=== PATIENT | male | born 1965 | race Caucasian/White ===

== ENCOUNTER 2025-02-06 08:46 | Outpatient (CLI) | payer OTHER, SELFPAY ==
--- NOTE | 2025-02-06 09:00 | CA_ITS ---
APPROVED REPORT EXAM: Comprehensive 2D, Doppler, and color-flow Echocardiogram Fluoroscope Operator: Kalina Seymour RVT Ht: 5 ft 11 in Wt: 235lbs BSA: 2.26 BP: 132/69 mmHg Indications: CHEST PAIN,SHORTNESS OF BREATH,CABG 2D Dimensions IVSd 1.71 cm M: 0.6-1.2 LVEF (Visual) 50.80 % PWd 0.94 cm M: 0.6 - 1.2 LA Volume 48.00 mL LVDd 3.96 cm M: 4.2 - 5.9 LA Volume Index 21.24 mL/m2 (M/F) 16-34 LVDs 2.95 cm M: 2.5 - 4.0 M-Mode Dimensions LA Diam 3.81 cm (1.9-4.0) TAPSE 1.60 (<1.7) LV Diastology E Decel Time 207 (160-240 msec) E/A Ratio 0.9 Aortic Valve KEILA Index 1.74 cm2/m2 AoV Peak Kei. 142.0 (50-130 cm/s) AO Peak GR. 8.10 mmHg AO Mean GR. 4.40 (<5 mmHg) AO VTI 25.0 (18-25 cm) KEILA (VTI) 4.01 (2.5-4.5 cm2) Mitral Valve MV E Max Kei. 84.0 (40-130 cm/s) MV A Velocity 97.0 (40-130 cm/s) E/A Ratio 0.87 MV PHT 61.0 ms Pulmonary Valve PV Peak Velocity 62.0 (50-150 cm/s) Left Ventricle The left ventricle is normal size. Left ventricular systolic function is normal. The left ventricular ejection fraction is within the normal range. There is increased left ventricular wall thickness. There is normal LV segmental wall motion. The left ventricular diastolic function is normal. LVEF is 60%. Right Ventricle The right ventricle is normal size. The right ventricular systolic function is normal. Atria The left atrium is mildly dilated. The right atrium is mildly dilated. There is no color Doppler evidence of interatrial shunt. Aortic Valve The aortic valve is mildly thickened. There is no hemodynamically significant aortic valvular stenosis. Trace aortic regurgitation is present. Mitral Valve The mitral valve is normal in structure. No evidence of mitral valve stenosis. Trace mitral regurgitation is present. Tricuspid Valve The tricuspid valve leaflets are thin and pliable. Trace tricuspid regurgitation. There is insufficient TR jet to estimate RVSP. Pulmonic Valve The pulmonary valve is grossly normal in structure. Trace pulmonic valve regurgitation is present. Great Vessels The aortic root is normal in size. IVC is normal in size and collapses >50% with inspiration. Pericardium There is no pericardial effusion. Other Information Study Quality: Fair Conclusion Normal biventricular systolic function. Mild biatrial dilation. No significant valvular stenosis or regurgitation. Electronically signed by : Unique Roger MD 02/09/2025 12:45:57
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
--- OUTSIDE RECORDS SUMMARY | 2025-02-06 09:08 | XMS_ITS | Clinical Summary ---
Author Organization Healthcare Address [address] [place] [address] Care Team Providers Care Prenatal Teacher Name Role Phone Unavailable Primary Care Provider Unavailabl e Social History Tobacco Use Types Packs/Day Years Used Date Smoking Tobacco: Never Assessed Sex and Gender Information Value Date Recorded Sex Assigned at Not on file Legal Sex Male 8:38 PM EST Gender Identity Not on file Sexual Orientation Not on file Plan of Treatment Health Maintenance Due Date Last Done Comments [facility]-Depression Screening 1966 [facility]-Infant/Child/Adol SDOH Screenings 1966 [facility]- SDOH Screenings 1984 [facility]-Adult SDOH Screenings 1984 [facility]-DTaP,Tdap,and Td Vaccine s (1 - Tdap) 1985 [facility]-Hepatitis B Vaccines (1 of 3 - 19+ 3-dose series) 1985 CT Colonography 08/23/2011 Colonoscopy 08/23/2011 FIT-DNA 08/23/2011 FIT 08/23/2011 FOBT 08/23/2011 Sigmoidoscopy 08/23/2011 [facility]-Colorectal Cancer Screening 08/23/2011 [facility]-Pneumococcal Vaccine: 50 + Years (1 of 1 - PCV) 2016 [facility]-Zoster Vaccines (1 of 2) 2016 [id number] Vaccine (1 - 20 24-25 season) 2025 [facility]-Influenza Vaccine (#1) 2025 HPV Vaccines Aged Out No longer eligi ble based on patient's age to complete this topic [facility]-HIB Vaccines Aged Out No longer e ligible based on patient's age to complete this topic [facility]-Hepatitis A Vaccines Aged Out No longer eligible based on patient's age to complete this topic UKY-IPV Vaccines Aged Out No longer e ligible based on patient's age to complete this topic [facility]-Rotavirus Vaccines Aged Out No lo nger eligible based on patient's age to complete this topic
[2025-02-06 10:30] LABS: Hematocrit 37.5 % (42.0-52.0); Hemoglobin 12.6 g/dL (14.1-18.0); Immature Granulocytes % 1.4 %; Mean Corpuscular HGB Conc 33.6 g/dL (31.8-35.4); Mean Corpuscular Hemoglobin 34.5 pg (27.0-31.2); Mean Corpuscular Volume 102.7 fl (80-94); Nucleated Red Blood Cells % 0 %; Platelet Count 163 K/mm3 (142-424); Red Blood Count 3.65 M/mm3 (4.60-6.20); Red Cell Distribution Width-SD 50.3 fL; White Blood Count 9.4 K/mm3 (4.8-10.8)
[2025-02-06 10:47] LABS: Alanine Aminotransferase 17 U/L (12-78); Albumin Level 3.2 g/dl (3.5-5.0); Alkaline Phosphatase 71 U/L (38-126); Anion Gap 9.0 mEq/L (5-15); Aspartate Amino Transferase 20 U/L (17-59); Bilirubin,Direct 0.1 mg/dl (0.0-0.4); Bilirubin,Indirect 0.3 mg/dL (0.0-0.9); Bilirubin,Total 0.4 mg/dl (0.2-1.3); Bilirubin,Unconjugated 0.3 mg/dL (0.0-1.1); Blood Urea Nitrogen 7 mg/dl (9-20); Calcium 9.2 mg/dl (8.4-10.2); Carbon Dioxide 27 mmol/L (22.0-30.0); Chloride 101 mmol/L (98-107); Cholesterol 170 mg/dl (140-200); Creatinine,Serum 0.80 mg/dl (0.66-1.25); Estimated Glomerular Filt Rate 99 ml/min (>60); GFR (African American) 120 ML/MIN (>60); Glucose 96 mg/dl (74-100); HDL Cholesterol 48 mg/dl (40-60); Magnesium 1.6 mg/dl (1.6-2.3); Potassium 4.0 mmoL/L (3.5-5.1); Sodium 133 mmol/L (136-145); Total Protein,Serum 5.5 g/dl (6.3-8.2); Triglycerides 218 mg/dl (30-150)
[2025-02-06 11:03] LABS: Free T4 (Free Thyroxine) 1.15 ng/dl (0.78-2.19)
[2025-02-06 11:16] LABS: Thyroid Stimulating Hormone 1.31 uIU/mL (0.465-4.68)
== END 2025-02-06 23:59 | disposition home or self-care (01) ==
PROVIDERS: PCP Internal Medicine; Visit Provider Nurse Practitioner
DX: I11.9 Hypertensive heart disease without heart failure (principal); I25.10 Atherosclerotic heart disease of native coronary artery without angina pectoris; E78.5 Hyperlipidemia, unspecified; Z95.1 Presence of aortocoronary bypass graft
CPT/HCPCS: 36415; 80048; 80061; 80076; 83735; 84439; 84443; 85025; 93306

== ENCOUNTER 2025-02-16 11:21 | Outpatient (CLI) | payer OTHER, SELFPAY ==
--- OUTSIDE RECORDS SUMMARY | 2025-02-16 11:24 | XMS_ITS | Clinical Summary ---
Author Organization [facility] [place] Address [address] [place] [id number] Phone Care Team Providers Care Pickle Solution Maker Name Role Phone Felicity Muro MD Primary Care Provider [phone] Ronal Zapata MD Unavailable [phone] Allergies Active Allergy Reactions Criticality Noted Date [...] (02/09/2019): Added automatically from request for surgery [id number] Carbuncle of left axilla 12/09/2018 CONNOR (generalized [...] disease) 11/13/2013 Coronary artery disease invo lving [place] coronary artery of [place] heart Coronary artery disease invo lving [place] coronary artery of [place] heart with angina pectoris Syncope and collapse [...] Surgeon: Ankit Hartman MD; Location: [facility]; Service: Cardiac Medical devices from this [...] on file Sexual Orientation Not on file Last Filed Vital Signs Vital Sign Reading [...] this topic Medical Devices Implanted Type Area Wool Fleece Grader Device Identifier Shelf Expiration Date Model / Serial / Lot Stent System - 3.0 X 22mm Resolute Alfredo Rx Coronary - [id number] Implanted:Qty: 1 on 02/10/2019 by Ankit Hartman MD at [facility] N/A: [employer] [id number] / / [id number] Procedures Procedure Name Priority Date/Time Associated Diagnosis [...] possible following completion of this dictation, during [facility]'s regular business hours. Note: Radiology results need to be interpreted within a comprehensiveclinical context. If you have questions about the radiology report, please contactthe office of the ordering clinician. [facility] ORDERABLES Final Result * FECAL HEME SCREEN (04/08/2015 8:45 PM EST) Final Positive immunochemical fecal occult blood test Internal QC ok This test is not recommended to detect upper GI bleeding. [facility] Stool specimen (specimen) 04/08/2015 8:45 PM EST 04/09/2015 6:25 AM EST us Lefty Baig DO IMMUNOLOGY ORDERABLES Final Resu lt [facility] [address] [place] [address] from Last 3 Months or Most Recently Relevant to Health Maintenance Insurance [id number] [facility] [place] [facility] [place] Advance Directives For more information, please contact: [phone] Documents on File Type Date Recorded Patient Leather Grader Expl anation Advance Directives/DNR 05/25/2017 12:41 PM [...] 10:56 PM 07/09/2017 8:50 PM Care Teams Pickle Solution Maker Relationship Specialty Start Date End Date Felicity Muro MD [address] [place] [id number] PCP - General Family Medicine 11/12/13 Ronal Zapata MD [address] [place] [address] [place] [address] Internal Medicine-Cardiovascular Disease 06/25/23
--- OUTSIDE RECORDS SUMMARY | 2025-02-16 11:24 | XMS_ITS | Clinical Summary ---
Author Organization Healthcare Address [address] [place] [address] Care Team Providers Care Division Field Inspector Name Role Phone Unavailable Primary Care Provider [...] 2016 [facility]-Zoster Vaccines (1 of 2) 2016 [id number] Vaccine (1 - 20 24-25 season) 2025 [...]
--- NOTE | 2025-02-16 11:30 | NM_ITS ---
APPROVED REPORT Exam: Nuclear Stress Test Indication: cp..soa Patient Location: Outpatient Stress Tech: Crissy Mireles [place] Tech:ZE Pedro RT(R)(N) Ht: 5 ft 11 in Wt: 230 lbs HR: 99 bpm BP: 142/82 mmHg BSA: 2.24 m2 TID: 1.06 BMI: 32.0 History: cp..soa Procedure: Patient received 0.4 mg of intravenous Lexiscan, resting heart rate 99 bpm, resting blood pressure 142/82 mmHg, with Lexiscan maximum heart rate achieved was 112 bpm which is 85 % of the maximum predicted heart rate and blood pressure was 135/93 mmHg. With Lexiscan, patient denied any complaint of chest pain. The patient was not able to lay on his abdomen for prone images. Cardiac Stress and Resting SPECT Images: Cardiac Stress and Resting SPECT images were obtained using technetium 99m Myoview 30.7 mCi stress and 10.07 mCi at rest. The patient could not lie on his abdomen. Therefore, prone stress imaging could not be performed. This may affect the diagnostic interpretation of the study findings. Resting and stress imaging in supine positions demonstrate a medium sized, moderate, predominantly fixed perfusion defect in the distal inferior and apical LV carrasco. There is a small region of reversibility towards the inferior LV wall. Gated imaging demonstrates normal global LV systolic function. LVEF is calculated at 59%. Conclusion: Medium sized, moderate, predominantly fixed perfusion defect in the distal inferior and apical LV carrasco. There is a small region of reversibility towards the inferior LV wall. Findings are suggestive of partial reversible ischemia. Gated imaging demonstrates normal global LV systolic function. LVEF is calculated at 59%. Electronically signed by : Unique Roger MD 02/16/2025 23:17:05
[2025-02-16 13:00] VITALS: BP 142/82; PULSE 99; RESP 14
[2025-02-16] MEDS: SODIUM CHLORIDE 0.9% 10ML SYR (RAD ONLY) 10 ML IV ×2 (14:18)
[2025-02-16] MEDS: ISOTOPE MYOVIEW (PER STUDY) 1 DOSE IV (14:18)
== END 2025-02-16 23:59 | disposition home or self-care (01) ==
LOC: RAD 11:21
PROVIDERS: PCP Internal Medicine; Visit Provider Nurse Practitioner
DX: R94.39 Abnormal result of other cardiovascular function study (principal); I25.118 Atherosclerotic heart disease of native coronary artery with other forms of angina pectoris; R94.31 Abnormal electrocardiogram [ECG] [EKG]
CPT/HCPCS: 78452; 93017; 93018; A9502; J2785

== ENCOUNTER 2025-04-03 07:40 | Day surgery (SDC) | payer OTHER, SELFPAY ==
[2025-04-03] VITALS (14 sets, daily range): BP systolic 126–189; BP diastolic 72–97; PULSE 70–85; RESP 18–20; O2SAT 89–98; BMI 40.4
--- NOTE | 2025-04-03 07:08 | IR_ITS ---
APPROVED REPORT Patient Location: Outpatient Grounds And Nursery Specialist: ZE Boogie RT (R) PROCEDURES Left heart catheterization Left ventriculogram Selective coronary angiogram Left internal mammary angiography Selective engagement of the saphenous vein graft to the diagonal artery Selective engagement of the saphenous vein graft to the circumflex artery Drug-eluting stent deployment to the ostial segment of the saphenous vein graft supplying the diagonal artery Drug-eluting stent deployment to the dominant circumflex artery Drug-eluting stent deployment to the left anterior descending artery Drug-eluting stent deployment to the left main artery INDICATION Coronary artery disease, Angina pectoris, History of coronary artery bypass surgery, Abnormal Myoview, Refusal to undergo CABG SCAI INDICATION Clinical history 59-year-old gentleman with a history of ischemic cardiomyopathy who underwent 2 sternotomies in 2016 for bypass surgery. Patient had a complicated hospital course which included 31 days in the hospital and dialysis as well as sternal nonunion. Patient indicated he would rather than go through bypass surgery again. During the diagnostic angiogram I wanted to confer with the prior to proceeding with high risk left main stenting given the loss of the GOMEZ graft and the saphenous graft to the obtuse marginal artery. The concurred that bypass surgery is not an option and stenting was preferable. Because of this efforts were made to percutaneously revascularize patient Informed consent was obtained prior to the procedure. COMPLICATIONS NONE Estimated Blood Loss: LESS THAN 10 ML TECHNIQUE One percent lidocaine used to anesthetize the right groin. The right femoral artery was accessed via the Seldinger technique and a 5 [place] sheath was placed in the right femoral artery. A JL 4, JR4 catheter were used to perform left heart catheterization, left ventriculogram selective coronary angiography as well as selective engagement of the 2 vein grafts and the left internal mammary artery. Procedure was suspended to talk to the family about possible repeat coronary bypass surgery. Family chose to proceed with stenting. At the end of the diagnostic angiogram therapeutic Was administered giving a therapeutic ACT and a left coronary bypassed graft catheter was placed in the saphenous vein graft to the diagonal artery. A Choice PT extra-support wire was placed distally and a 3 mm x 12 mm Alfredo frontier stent was deployed in the ascending aorta extending into the ostial segment of this vein graft at 20 reginald. There was critical stenosis at the beginning of the procedure with wide patency and excellent flow distally. At the end of the procedure the apparatus was removed and a JL 4 guide catheter was placed in the left main artery followed by Choice PT extra-support wire placed into the circumflex artery. A 3 mm x 15 mm balloon was used to dilate the distal left main extending in the circumflex artery. 3.5 x 38 mm Alfredo frontier stent was placed in the proximal left main artery extending into the circumflex artery. A guide liner was required to deliver the stent. This was deployed at 22 reginald. Following this the wire was pulled back and placed into the LAD where a 2.5 x 12 mm compliant balloon was used to open the struts into the LAD. The wire was placed distally in the LAD and a 3.5 x 18 mm [place] frontier stent was deployed at 20 reginald. An additional 3.5 x 12 mm [place] frontier stent was then placed distal to the first stent at still overlapping and deployed at 20 reginald. There was still haziness which was concerning with additional plaque therefore an additional 3.5 x 12 mm Alfredo frontier stent was placed distal to the 12 mm stent and then deployed at 18 reginald. The balloon was brought back and deployed at 22 reginald throughout the entire 3.5 mm stents previously placed. A 4 mm x 22 mm [place] frontier stent was placed in the left main artery extending into the proximal LAD and deployed at 22 reginald reducing this severe stenosis to 0%. Excellent angiographic results were obtained with KAYODE-3 flow down the left main artery LAD and circumflex artery before and after the procedure. At the end of the procedure the apparatus was removed the groin was reprepped closure change sheath was removed good hemostasis was achieved using Perclose device patient was transferred to the postoperative care in stable condition. A total of 6 drug-eluting stents were used for revascularization ANGIOGRAPHIC RESULTS The left main artery Has a distal concentric 80% stenosis The left anterior descending artery Has a proximal concentric 60 to 70% stenosis followed by an additional mid vessel 70 to 80% stenosis The circumflex artery Is a dominant and has proximal tandem 80% soft plaque with an additional 80 to 90% soft plaque just proximal to the large bifurcating first obtuse marginal artery. The circumflex artery distal to the obtuse marginal artery is widely patent and gives rise to a small terminal obtuse marginal artery which is patent The right coronary artery Nondominant patent with proximal 50% stenosis and distal 30% stenosis The GRAFF ventriculogram reveals Normal 60% The left ventricular end-diastolic pressure Less than 10 mmHg GOMEZ to LAD occluded Saphenous vein graft to first diagonal artery is critically stenosed with a greater than 90% ostial stenosis accompanied by slow flow down the graft Saphenous vein graft to circumflex artery ostially occluded IMPRESSION Critical coronary artery disease as described above Refusal to consider repeat bypass surgery Successful stenting of the critically diseased saphenous vein graft to the diagonal artery critical ostial disease reduced to 0% with 1 drug-eluting stent Successful stenting of the distal left main artery critical disease reduced to 0% as described above Successful stenting of the LAD critical disease reduced to 0% with 3 drug-eluting stents as described above Successful stenting of the critically diseased circumflex artery critical disease reduced to 0% with 1 drug-eluting stent Normal ejection fraction Normal LVEDP PLAN 1. Effient and aspirin 2. LDL less than 55 to be achieved with high intensity statin 3. Avoidance of tobacco products 4. Risk factor modification 5. Cardiac rehabilitation Electronically signed by : Camilo Eisenberg MD 04/06/2025 15:34:10
[2025-04-03 08:23] LABS: Hematocrit 42.0 % (42.0-52.0); Hemoglobin 14.5 g/dL (14.1-18.0); Immature Granulocytes % 0.3 %; Mean Corpuscular HGB Conc 34.5 g/dL (31.8-35.4); Mean Corpuscular Hemoglobin 36.7 pg (27.0-31.2); Mean Corpuscular Volume 106.3 fl (80-94); Nucleated Red Blood Cells % 0 %; Platelet Count 197 K/mm3 (142-424); Red Blood Count 3.95 M/mm3 (4.60-6.20); Red Cell Distribution Width-SD 53.4 fL; White Blood Count 10.2 K/mm3 (4.8-10.8)
[2025-04-03 08:42] LABS: Chloride 104 mmol/L (98-107); Potassium 4.4 mmoL/L (3.5-5.1); Sodium 141 mmol/L (136-145)
[2025-04-03 08:45] LABS: Anion Gap 15.4 mEq/L (5-15); Blood Urea Nitrogen 15 mg/dl (9-20); Calcium 9.1 mg/dl (8.4-10.2); Carbon Dioxide 26 mmol/L (22.0-30.0); Creatinine Clearance Estimated 150 mL/min (50-200); Creatinine,Serum 1.00 mg/dl (0.66-1.25); Estimated Glomerular Filt Rate 77 ml/min (>60); GFR (African American) 93 ML/MIN (>60); Glucose 105 mg/dl (74-100)
[2025-04-03] MEDS: 0.9 % SODIUM CHLORIDE 500 ML 25 ML IV (09:46)
[2025-04-03] MEDS: HEPARIN 1,000 UNITS/500ML NS (CATH LAB) 3000 UNIT IV (09:46)
[2025-04-03] MEDS: LIDOCAINE 1% 10ML MDV 10 ML IJ (09:47)
[2025-04-03] MEDS: MIDAZOLAM HCL 1MG/ML 5ML VIAL 1 MG IV (10:29)
[2025-04-03] MEDS: FENTANYL 100MCG/2ML VIAL 50 MCG IV (10:30)
--- NOTE | 2025-04-03 10:38 | SUR.OPER ---
Dr Eisenberg spoke with family regarding option for cabg, family stated that patient was traumatized with last cabg, had complications, chest was opened twice, required dialysis, was in hospital for 31 days, and has nonunion of chest. Family stated that patient would not want to go back for a cabg again.
[2025-04-03] MEDS: HEPARIN 1,000 UNITS/ML 10ML VIAL (CATH LAB) 5000 UNIT IV ×2 (10:48→11:26)
[2025-04-03] MEDS: PRASUGREL 10MG TAB 60 MG PO (10:50)
[2025-04-03] MEDS: NITROGLYCERIN 800MCG/8ML SYR (CATH LAB) 800 MCG IA (11:16)
[2025-04-03] MEDS: IOPAMIDOL-370 (76%);100ML BOTTLE 250 ML IV (13:38)
[2025-04-03 15:05] LABS: CATHL Activated Clotting Time 287 SEC (74-125)
--- NOTE | 2025-04-27 14:39 | PC.NURSE ---
04/20/2025 pt lives in [place]. called times 2 no voice mail
== END 2025-04-03 15:10 | disposition home or self-care (01) ==
PROVIDERS: PCP Internal Medicine; Visit Provider Internal Medicine
PROC: 4A023N7 Measurement of Cardiac Sampling and Pressure, Left Heart, Percutaneous Approach (ICD-10-PCS; CPT 93452; principal; 2025-04-03 08:30)
DX: I25.708 Atherosclerosis of coronary artery bypass graft(s), unspecified, with other forms of angina pectoris (principal); R94.39 Abnormal result of other cardiovascular function study; E78.49 Other hyperlipidemia; R94.31 Abnormal electrocardiogram [ECG] [EKG]; I10 Essential (primary) hypertension; J44.9 Chronic obstructive pulmonary disease, unspecified; R06.09 Other forms of dyspnea; R42 Dizziness and giddiness; F17.210 Nicotine dependence, cigarettes, uncomplicated; Z79.02 Long term (current) use of antithrombotics/antiplatelets; Z79.899 Other long term (current) drug therapy; Z79.82 Long term (current) use of aspirin; Z88.5 Allergy status to narcotic agent; Z82.49 Family history of ischemic heart disease and other diseases of the circulatory system
CPT/HCPCS: 80048; 85025; 85347; 92928; 92937; 93459; 99152; 99153; C1725; C1760; C1769; C1874; C1887; C1894; C9600; C9604; J1200; J1644; J2003; J3010; J7040; Q9967